=== PATIENT | female | born 1980 | race Caucasian/White ===

== ENCOUNTER 2018-04-21 14:06 | Emergency (ER) | payer OTHER ==
--- NOTE | 2018-04-21 15:00 | PD ---
HPI Chief Complaint Decreased movement Date Seen: April 21, 2018 Time Seen: 14:55 Travel History International Travel<30 Days: No Contact w/Intl Traveler<30Days: No Known Affected Area: No History of Present Illness HPI Patient is 38-year-old white female at 25-26 weeks who gets her care in [place] and is here on vacation. She is noted decreased movement since last night. She called her doctors they told her to come to the hospital , she tried eating sweet items other things to the area did not seem to help however since being here on OB ED she has felt baby move some, she denies leakage or bleeding or pain Weeks Gestation: 25 Para: 1 : 2 History Obstetric History Obstetric History 1 vaginal delivery Social History Alcohol Use: No Tobacco Use: No Substance Abuse: No Review of Systems General / Constitutional: No: Fever, Weight Gain, Chills, Other Eyes: No: Diploplia, Blurred Vision, Visual changes, Pain, Photophobia HENT: No: Headaches, Vertigo, Lightheadedness Cardiovascular: No: Irregular Rhythm, Chest Pain or Discomfort, Palpitations, Tachycardia, Syncope, Varicosities, Edema, Cyanosis Respiratory: No: Cough, Short of Breath, Other Gastrointestinal: No: Nausea, Vomiting, Diarrhea Genitourinary: No: Decreased Urinary Output, Oliguria Musculoskeletal: No: Limited ROM, Weakness, Cramping, Edema, Pain Skin: No Rash, No Itching, No Dryness, No Lumps, No Change in Pigmentation, No Change in Nails, No Alopecia, No Lesions Neurologic: No: Weakness, Dizziness, Syncope, Focal Abnormalities, Coordination Problem, Headache, Slurred Speech, Seizures Psychiatric: No: Depression, Suicidal Ideations, Homicidal Ideation Endocrine: No: Heat Intolerance, Cold Intolerance, Polydipsia, Polyuria, Other Physical Exam Narrative GENERAL: Well-nourished, well-developed patient. SKIN: Warm and dry. HEAD: Normocephalic and atraumatic. EYES: No scleral icterus. No injection or drainage. ENT: No nasal drainage noted. Mucous membranes pink. Airway patent. NECK: Supple, trachea midline. No JVD. CARDIOVASCULAR: Regular rate and rhythm without murmurs, gallops, or rubs. RESPIRATORY: Breath sounds equal bilaterally. No accessory muscle use. BREASTS: Bilateral exam showed no masses , no retractions, no nipple discharge. ABDOMEN/GI: Abdomen soft, non-tender, bowel sounds present, no rebound, no guarding Gravid to [25-] weeks size Fundal Height: [-25] GENITOURINARY: Uterine Contractions: [none-] FHT's: Category: [-1] Baseline: [122-] Reactive: [-R] Variability: [mod-] Decels: [0-] EXTREMITIES: No cyanosis or edema. BACK: Nontender without obvious deformity. No CVA tenderness. NEUROLOGICAL: Awake and alert. Motor and sensory grossly within normal limits. Five out of 5 muscle strength in all muscle groups. Normal speech. Data Data Labs Bedside ultrasound done--showing a breech male fetus size equal dates with adequate amniotic fluid volume and anterior placenta grade 0, the fetus exhibits tones extremities and movement in those extremities, normal cardiac motion, general anatomy scan within normal limits, and breathing was identified MDM Interpretation(s) 25 week intrauterine with decreased movement now noting movement here on OB ED and ultrasound exhibiting same. With no abnormality seen on that ultrasound. Her NST is reactive for 25 weaker with accelerations and good variability. Plan Plan to discharge patient today she is going back to [facility] , she has an appointment with her OB doctor tomorrow Diagnosis Diagnosis: Primary Impression: Decreased movement affecting management of in second trimester Additional Impression: 25 weeks gestation of Disposition: 01 DISCHARGE HOME Condition: Stable Gabino Ramos II, MD April 21, 2018 15:00
== END 2018-04-21 15:11 | disposition home or self-care (01) ==
LOC: HOBED 14:06
DX: O36.8120 Decreased fetal movements, second trimester, not applicable or unspecified (principal); Z3A.25 25 weeks gestation of pregnancy
CPT/HCPCS: 76815